=== PATIENT | female | born 1950 | race Caucasian/White ===

== ENCOUNTER 2017-02-16 07:12 | Inpatient (IN) | payer OTHER ==
[2017-02-16] VITALS (17 sets, daily range): BP systolic 95–153; BP diastolic 51–95
[~2017-02-16] VITALS: Ht 162.6 cm; Wt 82.7 kg
[~2017-02-16 07:12] MED LIST: AMLODIPINE BESYL5 MG PO; ASPIR-LOW81 MG PO; ASPIRIN EC325 MG PO; ATENOLOL100 MG PO; BUSPAR15 MG PO; ENALAPRIL MALEA20 MG PO; GRALISE300 MG PO; LORAZEPAM0.5 MG PO; LYRICA50 MG PO; MULTIVITAMIN1 EAC2 PO; PRAVASTATIN SOD40 MG PO; PRAVASTATIN SOD80 MG PO; TYLENOL EXTRA500 MG PO
[2017-02-16 07:52] LABS: EOSINOPHIL (%) 1.1 % (0-5); EOSINOPHIL COUNT 0.1 K/uL (0-0.3); HEMATOCRIT 44.2 % (36.0-46.0); IMMATURE GRANULOCYTE (%) 0.5 % (0.0-0.7); IMMATURE GRANULOCYTE COUNT 0.1 K/uL; INSTRUMENT ABS NEUTROPHIL CT 6.2 K/uL; LYMPHOCYTE COUNT 2.4 K/uL (1.0-2.8); MCH 30.4 PG (29.0-34.0); MCHC 33.3 G/DL (30.0-36.0); MCV 91.3 FL (83-99); MEAN PLAT.VOLUME 10.8 uM^3 (9.5-12.4); MONOCYTE (%) 6.6 % (3-12); MONOCYTE COUNT 0.6 K/uL (0-0.8); NEUTROPHIL (%) 66.1 % (45-76); NEUTROPHIL COUNT 6.2 K/uL (1.8-6.4); PLATELET COUNT 259 K/uL (156-360); RBC DIS.WIDTH-CV 12.6 % (11.8-14.6); RBC DIS.WIDTH-SD 42.3 % (39-53); RED BLOOD COUNT 4.84 M/uL (3.80-5.20); WHITE BLOOD COUNT 9.3 K/uL (4.1-10.2)
[2017-02-16 07:57] LABS: PROTHROMBIN TIME 11.3 SEC (10.2-12.9)
[2017-02-16 08:00] LABS: PTT 41.2 SEC (25-37)
[2017-02-16 08:06] LABS: AMYLASE 29 IU/L (1-118); CHLORIDE 107 mEq/L (99-109); POTASSIUM 4.1 mEq/L (3.7-5.4); SODIUM 139 mEq/L (136-147)
[2017-02-16 08:08] LABS: GLUCOSE 152 mg/dL (70-99)
[2017-02-16 08:09] LABS: ANION GAP 14 MEQ/L (2-14)
[2017-02-16 08:11] LABS: SERUM ETHYL ALCOHOL < 10 mg/dL
[2017-02-16 08:12] LABS: GFR ESTIMATE (CALCULATED) > 59 mL/min/; TROP-I INTERPRETATION NEGATIVE
[2017-02-16 08:13] LABS: UREA NITROGEN (BUN) 17 mg/dL (9-23)
[2017-02-16 08:15] LABS: LIPASE 15 U/L (1.0-51.0)
[2017-02-16] MEDS ORDERED: ATENOLOL50 MG PO ×2 (11:24)
[2017-02-16] MEDS ORDERED: PRADAXA150 MG PO (11:26)
[2017-02-16 11:33] LABS: METH RESISTANT S AUREUS PCR NEGATIVE (NEGATIVE)
[2017-02-16 11:36] LABS: PROBE CHECK PASS; SPECIMEN PROCESSING CONTROL PASS
[2017-02-16 17:40] LABS: POINT-OF-CARE METER ID UU14174217
[2017-02-16 18:17] LABS: CREATINE KINASE 569 IU/L (1-294); TOTAL CK 569 IU/L (1-294)
[2017-02-16 18:23] LABS: TROP-I INTERPRETATION POSITIVE; TROPONIN-I 8.76 ng/mL (0.0-0.30)
[2017-02-16 19:32] LABS: CK-MB 52.7 ng/mL (0.0-4.9)
[2017-02-16 21:47] LABS: POINT-OF-CARE METER ID UU13113803
[2017-02-17] VITALS (17 sets, daily range): BP systolic 96–150; BP diastolic 7–85
[2017-02-17 01:17] LABS: CREATINE KINASE 709 IU/L (1-294); TOTAL CK 709 IU/L (1-294)
[2017-02-17 01:22] LABS: TROP-I INTERPRETATION POSITIVE
[2017-02-17 01:33] LABS: TROPONIN-I 8.08 ng/mL (0.0-0.30)
[2017-02-17 06:18] LABS: EOSINOPHIL (%) 1.4 % (0-5); EOSINOPHIL COUNT 0.1 K/uL (0-0.3); HEMATOCRIT 37.1 % (36.0-46.0); IMMATURE GRANULOCYTE (%) 0.5 % (0.0-0.7); INSTRUMENT ABS NEUTROPHIL CT 5.8 K/uL; LYMPHOCYTE COUNT 1.6 K/uL (1.0-2.8); MCH 31.1 PG (29.0-34.0); MCHC 33.4 G/DL (30.0-36.0); MEAN PLAT.VOLUME 11.1 uM^3 (9.5-12.4); MONOCYTE (%) 8.5 % (3-12); MONOCYTE COUNT 0.7 K/uL (0-0.8); NEUTROPHIL (%) 69.7 % (45-76); NEUTROPHIL COUNT 5.8 K/uL (1.8-6.4); PLATELET COUNT 213 K/uL (156-360); RBC DIS.WIDTH-SD 44.2 % (39-53); RED BLOOD COUNT 3.99 M/uL (3.80-5.20); WHITE BLOOD COUNT 8.3 K/uL (4.1-10.2)
[2017-02-17 06:28] LABS: TROP-I INTERPRETATION POSITIVE; TROPONIN-I 12.59 ng/mL (0.0-0.30)
[2017-02-17 06:33] LABS: ANION GAP 9 MEQ/L (2-14); CHLORIDE 110 MEQ/L (99-109); GFR ESTIMATE (CALCULATED) > 59 mL/min/; GLUCOSE 117 mg/dL (70-99); HDL CHOLESTEROL 22 MG/DL (Desirable>=50); LDL CHOLESTEROL 45 mg/dL (Desirable<100); NON-HDL CHOLESTEROL 106 mg/dL (Desirable<160); POTASSIUM 4.2 MEQ/L (3.7-5.4); SAMPLE HEMOLYSIS CHECK 0; SAMPLE ICTERIC CHECK 0; SAMPLE LIPEMIA CHECK 0; SODIUM 140 MEQ/L (136-147); TOTAL CHOLESTEROL 128 mg/dL (Desirable<200); TRIGLYCERIDES 305 MG/DL (Normal: <150); UREA NITROGEN (BUN) 14 mg/dL (9-23)
[2017-02-17 07:05] LABS: CREATINE KINASE 856 IU/L (1-294); TOTAL CK 856 IU/L (1-294)
[2017-02-17 07:33] LABS: CK-MB 82.4 ng/mL (0.0-4.9)
[2017-02-17 07:41] LABS: Estimated Average Glucose 128 mg/dL (70-123); HEMOGLOBIN A1c (GLYCOHEMOGLOB) 6.1 % HGB (Below 5.7)
[2017-02-17 08:50] LABS: POINT-OF-CARE METER ID UU13113803
[2017-02-17 12:30] LABS: TROP-I INTERPRETATION POSITIVE; TROPONIN-I 15.29 ng/mL (0.0-0.30)
[2017-02-17 12:59] LABS: CREATINE KINASE 909 IU/L (1-294); TOTAL CK 909 IU/L (1-294)
[2017-02-17 13:56] LABS: CK-MB 95.6 ng/mL (0.0-4.9)
[2017-02-17 20:29] LABS: CK-MB 52.4 ng/mL (0.0-4.9)
[2017-02-17 20:31] LABS: TROP-I INTERPRETATION POSITIVE; TROPONIN-I 11.63 ng/mL (0.0-0.30)
[2017-02-17 20:47] LABS: CREATINE KINASE 653 IU/L (1-294); TOTAL CK 653 IU/L (1-294)
[2017-02-18 01:28] VITALS: BP 100/74
[2017-02-18 04:52] VITALS: BP 104/65
[2017-02-18 06:51] LABS: ANION GAP 9 MEQ/L (2-14); CHLORIDE 108 MEQ/L (99-109); GFR ESTIMATE (CALCULATED) > 59 mL/min/; GLUCOSE 103 mg/dL (70-99); POTASSIUM 4.2 MEQ/L (3.7-5.4); SAMPLE HEMOLYSIS CHECK 1; SAMPLE ICTERIC CHECK 0; SAMPLE LIPEMIA CHECK 0; SODIUM 139 MEQ/L (136-147); UREA NITROGEN (BUN) 20 mg/dL (9-23)
[2017-02-18 09:05] VITALS: BP 115/56
[2017-02-18] MEDS ORDERED: LISINOPRIL5 MG PO (11:39)
[2017-02-18] MEDS ORDERED: ASPIR-LOW81 MG PO (11:39)
[2017-02-18] MEDS ORDERED: NITROSTAT0.4 MG SL (11:39)
[2017-02-18] MEDS ORDERED: BRILINTA90 MG PO (11:39)
[2017-02-18 11:41] VITALS: BP 142/76
[2017-02-18] MEDS ORDERED: PANTOPRAZOLE SO40 MG PO (11:46)
== END 2017-02-18 15:26 | disposition home or self-care (01) | DRG 247 ==
LOC: EME 07:12 → 4WEST 09:39 → 2SOUTH 09:39 → 4WEST 09:43 → ENRESERV 09:48 → 4WEST 02-17 12:22 → ENRESERV 02-17 14:49 → 4EAST 02-17 17:09 → ENPENDDIS 02-18 → 4EAST 02-18 15:26
PROVIDERS: Emergency Medicine; Internal Medicine Cardiovascular Disease; Surgery
DX: I21.29 ST elevation (STEMI) myocardial infarction involving other sites (principal); I69.351 Hemiplegia and hemiparesis following cerebral infarction affecting right dominant side; Z87.891 Personal history of nicotine dependence; E66.9 Obesity, unspecified; Z68.31 Body mass index [BMI] 31.0-31.9, adult; I10 Essential (primary) hypertension; E78.5 Hyperlipidemia, unspecified; I25.10 Atherosclerotic heart disease of native coronary artery without angina pectoris; I25.2 Old myocardial infarction; R73.03 Prediabetes; I70.291 Other atherosclerosis of native arteries of extremities, right leg; I35.0 Nonrheumatic aortic (valve) stenosis
CPT/HCPCS: 80048; 80061; 81003; 82150; 82550; 82550 91; 82553; 82948; 83036; 83690; 83880; 84484; 85025; 85347; 85610; 85730; 86850; 86900; 86901; 87641; 93005; 94760; 94799; 99281; 99285; C1725; C1769; C1874; C1887; C1894; G0480; J0461; J1644; J1815; J1940; J2250; J2405; J3010; J3246

== ENCOUNTER 2017-03-01 10:12 | Observation (INO) | payer OTHER ==
[~2017-03-01] VITALS: Ht 162.6 cm; Wt 86.0 kg
[~2017-03-01 10:12] MED LIST changes: +ATENOLOL50 MG PO; +BRILINTA90 MG PO; +LISINOPRIL5 MG PO; +NITROSTAT0.4 MG SL; +PANTOPRAZOLE SO40 MG PO; +PRADAXA150 MG PO
[2017-03-01 11:09] LABS: BASOPHIL COUNT 0.1 K/uL (0-0.1); EOSINOPHIL COUNT 0.2 K/uL (0-0.3); HEMATOCRIT 41.1 % (36.0-46.0); IMMATURE GRANULOCYTE (%) 0.3 % (0.0-0.7); INSTRUMENT ABS NEUTROPHIL CT 5.1 K/uL; LYMPHOCYTE COUNT 1.6 K/uL (1.0-2.8); MCH 30.7 PG (29.0-34.0); MCHC 33.1 G/DL (30.0-36.0); MCV 92.8 FL (83-99); MEAN PLAT.VOLUME 11.1 uM^3 (9.5-12.4); MONOCYTE (%) 7.9 % (3-12); MONOCYTE COUNT 0.6 K/uL (0-0.8); NEUTROPHIL (%) 68.2 % (45-76); NEUTROPHIL COUNT 5.1 K/uL (1.8-6.4); RBC DIS.WIDTH-SD 44.1 % (39-53); RED BLOOD COUNT 4.43 M/uL (3.80-5.20); WHITE BLOOD COUNT 7.5 K/uL (4.1-10.2)
[2017-03-01 11:10] LABS: PLATELET COUNT 301 K/uL (156-360)
[2017-03-01 11:18] LABS: PROTHROMBIN TIME 11.2 SEC (10.2-12.9)
[2017-03-01 11:19] LABS: CHLORIDE 109 mEq/L (99-109); POTASSIUM 4.8 mEq/L (3.7-5.4); SODIUM 140 mEq/L (136-147)
[2017-03-01 11:20] LABS: GLUCOSE 113 mg/dL (70-99)
[2017-03-01 11:22] LABS: ANION GAP 12 MEQ/L (2-14)
[2017-03-01 11:24] LABS: GFR ESTIMATE (CALCULATED) > 59 mL/min/
[2017-03-01 11:25] LABS: UREA NITROGEN (BUN) 17 mg/dL (9-23)
[2017-03-01 11:31] LABS: TROP-I INTERPRETATION NEGATIVE; TROPONIN-I 0.01 ng/mL (0.0-0.30)
[2017-03-01] MEDS ORDERED: PANTOPRAZOLE SO40 MG PO (12:23)
[2017-03-01 15:12] VITALS: BP 152/73
[2017-03-01 18:25] LABS: TROP-I INTERPRETATION NEGATIVE; TROPONIN-I 0.01 ng/mL (0.0-0.30)
[2017-03-01 20:00] VITALS: BP 120/71
[2017-03-01 23:53] VITALS: BP 119/58
[2017-03-02 01:53] LABS: TROP-I INTERPRETATION NEGATIVE; TROPONIN-I 0.01 ng/mL (0.0-0.30)
[2017-03-02 05:29] VITALS: BP 140/76
[2017-03-02 09:20] VITALS: BP 140/72
[2017-03-02] MEDS ORDERED: BRILINTA90 MG PO (10:36)
[2017-03-02] MEDS ORDERED: PRAVASTATIN SOD80 MG PO (10:36)
[2017-03-02] MEDS ORDERED: ATENOLOL50 MG PO (10:37)
[2017-03-02] MEDS ORDERED: LISINOPRIL5 MG PO (10:37)
[2017-03-02] MEDS ORDERED: NITROSTAT0.4 MG SL (10:37)
== END 2017-03-02 11:42 | disposition home or self-care (01) ==
LOC: EME 10:12 → ENRESERV 13:10 → EDOF 13:14 → 5WEST 13:14 → EDOF 13:14 → ENRESERV 13:33 → 5WEST 14:59
PROVIDERS: Emergency Medicine; Hospitalist
DX: R07.9 Chest pain, unspecified (principal); M25.512 Pain in left shoulder; I10 Essential (primary) hypertension; I21.3 ST elevation (STEMI) myocardial infarction of unspecified site; I25.10 Atherosclerotic heart disease of native coronary artery without angina pectoris; Z91.19 Patient's noncompliance with other medical treatment and regimen; I73.9 Peripheral vascular disease, unspecified; I35.0 Nonrheumatic aortic (valve) stenosis; I69.351 Hemiplegia and hemiparesis following cerebral infarction affecting right dominant side; F32.9 Major depressive disorder, single episode, unspecified; E78.5 Hyperlipidemia, unspecified; K21.9 Gastro-esophageal reflux disease without esophagitis; E66.9 Obesity, unspecified; Z68.32 Body mass index [BMI] 32.0-32.9, adult; Z95.5 Presence of coronary angioplasty implant and graft; Z87.891 Personal history of nicotine dependence; Z79.82 Long term (current) use of aspirin
CPT/HCPCS: 71010; 73030; 80048; 84484; 85025; 85610; 85730; 93005; 99281; 99285; G0378; J1650; J2270

== ENCOUNTER 2017-12-23 11:18 | Emergency (ER) | payer OTHER, MEDICARE ==
[~2017-12-23] VITALS: Ht 162.6 cm; Wt 77.2 kg
[2017-12-23] MEDS ORDERED: ULTRAM50 MG PO (12:50)
[2017-12-23 13:12] VITALS: BP 135/65
== END 2017-12-23 13:13 | disposition home or self-care (01) ==
LOC: EME 11:18
DX: S90.32XA Contusion of left foot, initial encounter (principal); W20.8XXA Other cause of strike by thrown, projected or falling object, initial encounter; Z95.5 Presence of coronary angioplasty implant and graft
CPT/HCPCS: 73630; 99281; 99284